=== PATIENT | male | born 1975 | race Caucasian/White ===

== ENCOUNTER 2020-07-22 11:34 | Emergency (ER) | payer SELFPAY ==
[2020-07-22] MEDS ORDERED: LIDOCAINE 1% 10 ML VIAL INJ ONE (11:42)
[2020-07-22 11:45] VITALS: TEMP 97.8
--- NOTE | 2020-07-22 12:09 | ED.PDOC ---
History of Present Illness - General Chief Complaint: Laceration Stated Complaint: laceration to left thumb Time Seen by Provider: 07/22/20 11:37 Source: patient, RN notes reviewed, Vital Signs reviewed Exam Limitations: no limitations - History of Present Illness Initial Comments: 45 yo M was trying to open a makeup box with a new knife he got for char[employer] when he sliced his left thumb. last Tetanus one year ago. Timing/Duration: just prior to arrival Severity: moderate Location: hands Improving Factors: cold therapy, immobilization Associated Symptoms: other - bleeding Allergies/Adverse Reactions: Allergies NO KNOWN ALLERGY Allergy (Verified 07/22/20 11:45) Home Medications: Ambulatory Orders NK 07/22/20 Review of Systems - Review of Systems Constitutional: Denies: chills, fever EENTM: Denies: blurred vision Respiratory: Denies: cough, short of breath Cardiology: Denies: chest pain, palpitations Gastrointestinal/Abdominal: Denies: abdominal pain, diarrhea Genitourinary: Denies: discharge, frequency Musculoskeletal: Denies: back pain, joint swelling Skin: States: see HPI Neurological: Denies: headache, weakness Endocrine: Denies: increased urine, unexplained weight gain, unexplained weight loss Hematologic/Lymphatic: Denies: blood clots, easy bleeding, easy bruising Past Medical History (General) - Patient Medical History Hx Stroke: No Hx Congestive Heart Failure: No - Vaccination History Hx Tetanus, Diphtheria Vaccination: Yes - 1 year ago Hx Influenza Vaccination: No - Social History Hx Tobacco Use: Yes Family Medical History - Family History Mother Family History: Unknown Living Status: Still Living Physical Exam - Physical Exam General Appearance: Alert, Comfortable, No apparent distress, Well Developed, Well Groomed, Well Hydrated, Well Nourished Eyes, Ears, Nose, Throat Exam: normal ENT inspection Neck: non-tender, supple Cardiovascular/Chest: normal peripheral pulses, regular rate, rhythm - HR94 Respiratory: normal breath sounds, no respiratory distress Gastrointestinal/Abdominal: soft Back Exam: normal inspection Extremity: normal range of motion, non-tender, normal capillary refill Neurologic: no motor/sensory deficits, alert, normal mood/affect Skin Problem Location: upper extremities - left thumb 2.8 cm on dempsey surface of distal thumb Progress - Progress Progress: 07/22/20 12:21 The data reviewed when caring for this patient included: nurse notes, prior records, etc. My assessment and the results of testing completed here in the ED were discussed with the patient. All questions were answered, and they express understanding of my assessment and the plan. They have been instructed to return if their symptoms worsen, and have been asked to follow up with their primary care physician to recheck today's presenting complaint. return precautions given. Josephine Prado DO #[id number] Procedures - Laceration/Wound Repair Left Finger Wound Length (cm): 2.8 Wound's Depth, Shape: superficial Wound Explored: clean Irrigated w/ Saline (cc's): 500 Anesthesia: 1% Lidocaine - 3 ml Wound Repaired With: sutures Suture Size/Type: 5:0, prolene Number of Sutures: 3 Sterile Dressing Applied?: Yes Departure - Departure Clinical Impression: Laceration Time of Disposition: 11:44 Disposition: Discharge to Home or Self Care Departure Forms: ED Discharge - Pt. Copy, Patient Portal Self Enrollment Instructions: DI for Laceration Repair, Laceration Repair With Stitches (DC) Diet: resume usual diet Activity: increase activity as tolerated Home Medications: Ambulatory Orders NK 07/22/20 Additional Instructions: return in 14 days for suture removal, sooner if red, warm or concern for infection.
[2020-07-22 12:25] VITALS: BP 151/98; O2SAT 98
== END 2020-07-22 12:23 | disposition home or self-care (01) ==
LOC: ER 11:34
DX: S61.012A Laceration without foreign body of left thumb without damage to nail, initial encounter (principal); W26.0XXA Contact with knife, initial encounter; Y93.89 Activity, other specified; Y92.9 Unspecified place or not applicable; Z87.891 Personal history of nicotine dependence